=== PATIENT | male | born 1950 | race Caucasian/White ===

== ENCOUNTER 2020-06-04 09:13 | Outpatient (CLI) | payer MEDICARE, SELFPAY ==
[2020-06-04 10:10] LABS: Cholesterol 114 mg/dL (0-200); HDL Direct 34 mg/dL; Triglycerides 167 mg/dL (<150)
[2020-06-04 10:21] LABS: LDL Cholesterol Direct 50 mg/dL
== END 2020-06-04 09:14 | disposition home or self-care (01) ==
LOC: ANHLAB 09:22
PROVIDERS: Family Provider Internal Medicine Cardiovascular Disease; PCP Family Medicine; Visit Provider Internal Medicine Cardiovascular Disease
DX: I25.10 Atherosclerotic heart disease of native coronary artery without angina pectoris (principal)
CPT/HCPCS: 36415; 80061

== ENCOUNTER 2021-02-08 08:46 | Outpatient (CLI) | payer MEDICARE, SELFPAY ==
[2021-02-08 09:19] LABS: Alanine Aminotransferase 19 U/L (4-50); Albumin Level 4.1 g/dL (3.5-5.1); Alkaline Phosphatase 75 U/L (38-126); Anion Gap 5 mmol/L (8-16); Aspartate Amino Transferase 27 U/L (17-59); Bilirubin,Total 0.5 mg/dL (0.2-1.3); Blood Urea Nitrogen 16 mg/dL (9-20); Calcium 9.8 mg/dL (8.4-10.2); Carbon Dioxide 31 mmol/L (22-30); Chloride 102 mmol/L (98-107); Cholesterol 123 mg/dL (0-200); Estimated Glomerular Filt Rate > 60; Glucose 157 mg/dL (65-110); HDL Direct 33 mg/dL; Potassium 3.7 mmol/L (3.4-5.0); Sodium 138 mmol/L (137-145); Triglycerides 135 mg/dL (<150)
[2021-02-08 09:30] LABS: LDL Cholesterol Direct 65 mg/dL
== END 2021-02-08 08:47 | disposition home or self-care (01) ==
PROVIDERS: PCP Family Medicine; Visit Provider Internal Medicine Cardiovascular Disease
DX: I25.10 Atherosclerotic heart disease of native coronary artery without angina pectoris (principal); I10 Essential (primary) hypertension; E78.2 Mixed hyperlipidemia; Z51.81 Encounter for therapeutic drug level monitoring
CPT/HCPCS: 36415; 80053; 80061

== ENCOUNTER 2021-06-22 13:11 | Outpatient (RCR) | payer MEDICARE, SELFPAY ==
[2021-06-22 13:58] VITALS: BMI 47.5
== END 2021-07-30 12:28 | disposition home or self-care (01) ==
LOC: ANHWOC 13:11
PROVIDERS: PCP Family Medicine; Visit Provider Family Medicine
DX: E11.622 Type 2 diabetes mellitus with other skin ulcer (principal); L97.909 Non-pressure chronic ulcer of unspecified part of unspecified lower leg with unspecified severity
CPT/HCPCS: 99212; G0463

== ENCOUNTER 2021-08-06 08:00 | Outpatient (RCR) | payer MEDICARE, SELFPAY ==
--- NOTE | 2021-07-22 14:03 | PTOPEVAL ---
PHYSICAL THERAPY EVALUATION AND PLAN OF CARE 07-22-21 Thank you for referring Sheldon Sam to [facility] for the diagnosis of B LE lymphedema. He is scheduled to be seen for therapy? 3 x/week for 5 weeks. Please review, sign, date and return this plan of care DARRICK. I agree with and certify that the following plan of care is medically necessary. Referring Physician Date Attending Provider: Alphonso Marie MD Outpatient Past Medical History Neurological History Hx Other Neurological Disorders Yes: concussions Cardiovascular History Hx Atrial Fibrillation Yes Hx Cardiac Catheterization Yes: 1 stent 2001 Hx Congestive Heart Failure Yes Hx Hypercholesterolemia Yes: meds Hx Hypertension Yes: meds Respiratory History Hx Respiratory Disorders No Significant History Gastrointestinal History Hx Gastrointestinal Disorders No Significant History Genitourinary History Hx Genitourinary Disorders No Significant History Musculoskeletal History Hx Back Pain Yes: chronic stiffness Hx Orthopedic Surgery Yes: back surgery 1986; R knee arthroscopy &trauma tib-fib fx casted Hematological History Hx Hematological Disorders No Significant History Endocrine History Hx Diabetes Yes: oral medication HEENT History Hx Other HEENT Disorders Yes: supposed to wear glasses Integumentary History Hx Skin Disorders No Significant History Reproductive History Hx Reproductive Disorders No Significant History Psychosocial History Hx Psychiatric Disorders No Significant History Pain History History of Any Previous or Ongoing No Significant History Instance of Pain Anesthesia History Hx Anesthesia Reactions No Significant History Other History Hx Other Medical Conditions Yes: obestiy, recent loss 10#; malaria Evaluation Information Problem Diagnosis B LE lymphedema Onset May 2021 Subjective Information change in HTN meds Query Text:As Reported By Patient/ Family Prior Level of Function Activity Level (Last 3 Months) Occupation retired Activity of Daily Living Ability Independent Indoor/Home Mobility Independent Community Mobility Independent Stairs Ability Independent Functional Cognition (Planning, Shopping Independent , Taking Medications) Cooking Yes Cleaning Yes Laundry Yes Shopping Yes Driving Yes Pain Assessment Timing of Pain Assessment Timing of Pain Assessment Assessment Pain Scale Pain Scale Used Numeric (1 - 10) Self Report Pain Assessment Bila
--- NOTE | 2021-08-09 13:47 | PCPTNOTE ---
pt called and canceled today's appt, stated doing well and does not need any further therapy. d/c PT services.
--- NOTE | 2021-08-09 13:55 | PTOPEVAL ---
PHYSICAL THERAPY DISCHARGE 08-09-21 Refer to the clinical summary below, for his status today, compared to the initial evaluation. The goals were partially achieved; did not achieve the goals for circumferential measurement of legs. Thank you for referring Sheldon Sam to [facility].? Please review, sign, date and return this Discharge report DARRICK. I agree with and certify that the following plan of care is medically necessary. Referring Physician Date Attending Provider: Alphonso Marie MD Assessment Status Discharge - Pt Not Present Additional measured R and L LE at ankle, Comments mid calf, just below knee/ where top of garment hits and mid thigh; issued these #'s to pt and educated on how to measure, for future comparison ; and if he wants to try a different garment in the future; -------- educated and reviewed: HEP, doing 8-10 reps of leg exercises, self MLD, garment use- stated he wore it with sleeping last night-- reinstructed wear during day only; garment requires replacement 6-8 months when loss of elasticity; monitor skin, cellulitis s/s; pt asked good questions and voiced understanding of above info; Skin Inspection Location Left Lower Extremity,Right Lower Extremity Skin Observations Absence of Leg Hair,Dorsum Foot Swelling,Hyperkeratosis, Hyperpigmentation,Hyperplasia, Obesity Palpation Findings Non-Pitting Edema Tissue Texture Firm Lymphedema Stage I Skin Inspection Comment R ankle/ malleoli- without edema; mild redness over lower leg, mid to lower aspects and foot/ toes L lower leg without fibrotic tissue; ankle visible and tibia visible LE Circumferential Measurement Right LE Lymphedema Side Right Metatarsal Heads (cm) 28 Figure 8 of Ankle (cm) 61 8 cm From Bottom of Foot (cm) 30.5 12 cm From Bottom of Foot (cm) 27 16 cm From Bottom of Foot (cm)
== END 2021-08-10 15:13 | disposition home or self-care (01) ==
LOC: ANHPT 08:00
PROVIDERS: PCP Family Medicine; Visit Provider Family Medicine
DX: I89.0 Lymphedema, not elsewhere classified (principal)
CPT/HCPCS: 29581; 97140; 97162

== ENCOUNTER 2021-08-11 10:38 | Outpatient (CLI) | payer SELFPAY | END 2021-08-11 10:39 | disposition home or self-care (01) | LOC: CHSOUTPT 10:39 | PROVIDERS: PCP Family Medicine; Visit Provider Family Medicine | DX: E11.9 Type 2 diabetes mellitus without complications (principal) | CPT/HCPCS: 99199 ==

== ENCOUNTER 2023-01-04 07:07 | Outpatient (CLI) | payer MEDICARE, SELFPAY ==
[2023-01-04 08:12] LABS: Hematocrit 46.1 % (42.0-52.0); Hemoglobin 14.8 g/dL (14.0-18.0); Mean Corpuscular HGB Conc 32.1 g/dl (32-36); Mean Corpuscular Volume 90.4 fl (80-100); Mean Platelet Volume 10.4 fl (7.4-10.4); Platelet Count Result 204 k/mm3 (150-375); Red Cell Distribution Width 13.8 % (11.5-14.5); White Blood Count 10.9 K/mm3 (4.5-10.0)
[2023-01-04 08:26] LABS: Anion Gap 6 mmol/L (8-16); Blood Urea Nitrogen 23 mg/dL (9-20); Calcium 9.7 mg/dL (8.4-10.2); Carbon Dioxide 28 mmol/L (22-30); Chloride 105 mmol/L (98-107); Estimated Glomerular Filt Rate > 60; Glucose 125 mg/dL (65-110); Potassium 4.5 mmol/L (3.4-5.0); Sodium 139 mmol/L (137-145)
== END 2023-01-04 07:08 | disposition home or self-care (01) ==
LOC: ANHLAB 07:09
PROVIDERS: PCP Family Medicine; Visit Provider Internal Medicine Cardiovascular Disease
DX: I48.19 Other persistent atrial fibrillation (principal); I10 Essential (primary) hypertension; Z79.01 Long term (current) use of anticoagulants
CPT/HCPCS: 36415; 80048; 82088; 84244; 85027

== ENCOUNTER 2023-01-05 08:19 | Outpatient (CLI) | payer MEDICARE, SELFPAY ==
--- NOTE | 2023-01-26 15:46 | WPDSLEEPSTUD ---
Sleep Study Date of Study: 01/05/23 Ordering Provider: JUNIOR Perales Interpreting Physician: Zena Walker MD Sleep Study Type: Split Polysomnogram Height: 1.83 m Weight: 136.078 kg Body Mass Index: 40.6 Neck Circumference (inches): 21 [place]: 12 Reason for Sleep Study JUHI; needs repeat evaluation. His machine broke 3 years ago. * 04/10/2008- split night study, AHI 20.5, optimal pressure 14 cm; BMI 43.5 * 01/01/2014; AHI 18.8, optimal pressure was 9 cm Sleep History Sheldon Sam is a 72-year-old man with atrial fibrillation and documented obstructive sleep apnea, previously was on CPAP in 2007, second machine was in 2013. His machine quit working iHe is on medication which cause frequent urination at night, and his CPAP machine no longer works. He started snoring.. He is having a split night sleep study for re-evaluation of sleep apnea. He rarely awakens from sleep short of breath. He never at night with heartburn, belching or coughing.??He occasionally snores, occasionally snores loudly enough that others complain. He never has trouble sleeping when he has a cold. He never wakes up gasping for breath during the night. He rarely has breathing problems at night. He rarely sweats excessively at night. He never notices his heart pounding or beating irregularly during the night. He occasionally falls asleep during the day. He rarely falls asleep involuntarily, never falls asleep while driving. He never experiences loss of muscle tone with strong emotion. He never feels paralyzed on waking or falling asleep. He occasionally experiences vivid dreams upon waking or falling asleep. He rarely feels afraid of going to sleep. He occasionally has nightmares. He occasionally recalls his dreams. He rarely has thoughts racing through his mind. He never feels sad or depressed. He never feels anxiety. He rarely notices parts of his body jerk. He rarely kicks during the night. He never feels crawling or aching feelings in his legs. He never feels leg pain at night. He occasionally grinds his teeth, never has morning jaw pain. He never feels bothered by pain during the day, never awakened by pain during the night. He occasionally wakes up feeling stiff in the morning, rarely wakes feeling sore or achy in the morning. He never awakens with pain in his neck, spine, or joints. Normal bedtime is between 11:00 p.m. and 12 midnight, falling asleep within 15-30 minutes but sometimes taking 2 hours to fall asleep. He typically gets about 6-8 hours of sleep per night. His wake up time is 7:00 a.m. to 8:00 a.m.. He wakes up 4-5 times during the night, looks around the room, goes to the bathroom. He may be able to return to sleep within 5-10 minutes. He takes naps in the afternoon or evening, a short nap lasting 10 or 15 minutes may be refreshing. Most of the time he feels good when he wakes. He feels better in the morning compared to other times a day. Habits:??Tobacco: Prior smoker, quit years ago. Caffeine: 2 cups daily. Alcohol: none. Recreational substances: none PMFSH Past Medical History Medical History Atrial fibrillation BMI greater than 40 Diabetes type 2, controlled Diabetes type 2, uncontrolled Diabetic leg ulcer Hypertension Leg edema Lymphedema Obstructive sleep apnea Osteoarthritis Surgical History Surgical History H/O heart artery stent Family History Family History Other Heart disease Hypertension Social History Social History Smoking status: Former smoker Tobacco type: cigarettes Smoking end date: 05/08/75 Alcohol intake: never Substance use: never Substance use type: does not use Living arrangements: with family Additional living arrangements comments: , Radha Lin
[2023-01-26 15:48] VITALS: BMI 40.6
== END 2023-01-06 07:34 | disposition home or self-care (01) ==
LOC: ANHCSM 08:21
PROVIDERS: PCP Family Medicine; Visit Provider Physician Assistant
DX: G47.33 Obstructive sleep apnea (adult) (pediatric) (principal); I48.91 Unspecified atrial fibrillation; E11.9 Type 2 diabetes mellitus without complications; I10 Essential (primary) hypertension; Z87.891 Personal history of nicotine dependence
CPT/HCPCS: 95811

== ENCOUNTER 2023-02-07 09:04 | Outpatient (CLI) | payer MEDICARE, SELFPAY ==
[2023-02-07 09:43] LABS: Creatinine Urine 55.6 mg/dL
[2023-02-07 09:48] LABS: MALB Creatinine Ratio 19.6 mg/g (0-30); Microalbumin Urine Random 10.9 mg/L (0-16.7)
[2023-02-07 10:04] LABS: Hemoglobin A1C 6.6 % (<5.7)
== END 2023-02-07 09:05 | disposition home or self-care (01) ==
PROVIDERS: PCP Family Medicine; Visit Provider Physician Assistant
DX: Z12.5 Encounter for screening for malignant neoplasm of prostate (principal); D64.9 Anemia, unspecified; E11.9 Type 2 diabetes mellitus without complications
CPT/HCPCS: 36415; 82043; 82728; 83036; 84153; G0103

== ENCOUNTER 2024-02-13 08:11 | Outpatient (CLI) | payer MEDICARE, SELFPAY ==
[2024-02-13 08:44] LABS: Basophils Absolute Auto 0.1 K/mm3 (0.0-0.1); Basophils Percent Auto 1.1 % (0.2-1.2); Eosinophils Absolute Auto 0.5 K/mm3 (0-0.3); Eosinophils Percent Auto 4.2 % (0-4.4); Hematocrit 47.1 % (42.0-52.0); Hemoglobin 14.8 g/dL (14.0-18.0); Immature Granulocyte Absolute 0.05 K/mm3 (0.00-0.031); Immature Granulocyte Percent A 0.5 % (0-0.5); Lymphocytes Absolute Auto 2.83 K/mm3 (0.9-3.2); Lymphocytes Percent Auto 25.5 % (18.3-44.2); Mean Corpuscular HGB Conc 31.4 g/dl (32-36); Mean Corpuscular Hemoglobin 28.2 pg (26-34); Mean Corpuscular Volume 89.7 fl (80-100); Mean Platelet Volume 10.7 fl (7.4-10.4); Monocytes Absolute Auto 0.9 K/mm3 (0.1-0.6); Neutrophils Absolute Auto 6.7 K/mm3 (1.3-6.7); Neutrophils Percent Auto 60.7 % (45.5-73.1); Platelet Count Result 233 k/mm3 (150-375); Red Blood Count 5.25 M/mm3 (4.6-6.20); Red Cell Distribution Width 14.6 % (11.5-14.5); White Blood Count 11.1 K/mm3 (4.5-10.0)
[2024-02-13 08:58] LABS: Anion Gap 8 mmol/L (4-12); Blood Urea Nitrogen 15 mg/dL (9-20); Carbon Dioxide 28 mmol/L (22-30); Chloride 105 mmol/L (98-107); Estimated Glomerular Filt Rate > 60; Glucose 162 mg/dL (65-110); Potassium 4.5 mmol/L (3.4-5.0); Sodium 141 mmol/L (137-145)
[2024-02-13 09:00] LABS: Hemoglobin A1C 6.7 % (<5.7)
[2024-02-13 09:07] LABS: Creatinine Urine 86.4 mg/dL
[2024-02-13 09:29] LABS: Prostate Specific Antigen 1.8 ng/mL (< OR = 4.0)
[2024-02-13 09:41] LABS: Free T4 Free Thyroxine 1.27 ng/mL (0.78-2.19)
[2024-02-13 11:09] LABS: MALB Creatinine Ratio > 1319.4 mg/g (0-30); Microalbumin Urine Random > 1140.0 mg/L (0-16.7)
== END 2024-02-13 08:12 | disposition home or self-care (01) ==
LOC: ANHLAB 08:15
PROVIDERS: PCP Family Medicine; Visit Provider Family Medicine
DX: I48.0 Paroxysmal atrial fibrillation (principal); Z12.5 Encounter for screening for malignant neoplasm of prostate; E11.9 Type 2 diabetes mellitus without complications; I10 Essential (primary) hypertension
CPT/HCPCS: 36415; 80048; 82043; 83036; 84153; 84439; 84443; 85025; G0103